=== PATIENT | male | born 1990 | race Caucasian/White ===

== ENCOUNTER 2016-09-02 12:38 | Emergency (ER) | payer MEDICAID ==
[2016-09-02] MEDS ORDERED: Ertapenem 1 GM Vial IM STA (13:24)
--- NOTE | 2016-09-02 13:35 | EDM.PDOC ---
ED HPI GENERAL MEDICAL PROBLEM - General Chief Complaint: Genitourinary Problem Stated Complaint: UNK Time Seen by Provider: 09/02/16 13:33 Source of Information: Reports: Patient - History of Present Illness INITIAL COMMENTS - FREE TEXT/NARRATIVE: HISTORY AND PHYSICAL: History of present illness: [] Patient presents with cellulitis of pubic area area is 2" x 3" with a central nidus likely ingrown hair this area is mildly reddened there is some induration forming there is no fluctuance at this time no exudate for culture, No fever nausea vomiting chills sweats Review of systems: As per history of present illness and below otherwise all systems reviewed and negative. Past medical history: As per history of present illness and as reviewed below otherwise noncontributory. Surgical history: As per history of present illness and as reviewed below otherwise noncontributory. Social history: No reported history of drug or alcohol abuse. Family history: As per history of present illness and as reviewed below otherwise noncontributory. Physical exam: HEENT: Atraumatic, normocephalic, pupils reactive, negative for conjunctival pallor or scleral icterus, mucous membranes moist, throat clear, neck supple, nontender, trachea midline. Lungs: Clear to auscultation, breath sounds equal bilaterally, chest nontender. Heart: S1S2, regular, negative for clicks, rubs, or JVD. Abdomen: Soft, nondistended, nontender. Negative for masses or hepatosplenomegaly. Negative for costovertebral tenderness. Pelvis: Stable nontender. Genitourinary: Deferred. Rectal: Deferred. Extremities: Atraumatic, negative for cords or calf pain. Neurovascular unremarkable. Neuro: Awake, alert, oriented. Cranial nerves II through XII unremarkable. Cerebellum unremarkable. Motor and sensory unremarkable throughout. Exam nonfocal. Skin as per history of present illness otherwise unremarkable Diagnostics: [] Therapeutics: [] Invanz 1 g IM Bactrim double strength by mouth twice a day #20 no refill Warm pack Patient informed this may turn into an abscess requiring drainage he is to return if symptoms persist or worsen despite treatment or if fever nausea vomiting chills sweats should they develop Impression: [] Cellulitis Definitive disposition and diagnosis as appropriate pending reevaluation and review of above. - Related Data Allergies Allergy/AdvReac Type Severity Reaction Status Date / Time No Known Allergies Allergy Verified 09/02/16 13:19 Home Meds: Home Meds . [No Known Home Meds] 05/09/16 [History] Past Medical History - Past Surgical History Musculoskeletal Surgical History: Reports: Other (See Below) Social & Family History - Family History Family Medical History: Noncontributory - Tobacco Use Smoking Status *Q: Current Every Day Smoker Years of Tobacco use: 10 Packs/Tins Daily: 0.5 Used Tobacco, but Quit: No Second Hand Smoke Exposure: Yes - Caffeine Use Caffeine Use: Reports: None - Alcohol Use Days Per Week of Alcohol Use: 0 - Recreational Drug Use Recreational Drug Use: No ED ROS GENERAL - Review of Systems Review Of Systems: ROS reveals no pertinent complaints other than HPI. ED EXAM, GENERAL - Physical Exam Exam: See Below Course - Orders/Labs/Meds Meds: Medications Discontinued Medications Generic Name Dose Route Start Last Admin Trade Name Freq PRN Reason Stop Dose Admin Ertapenem 1 gm 09/02/16 13:24 Invanz IM 09/02/16 13:25 NOW STA Departure - Departure Time of Disposition: 13:42 Disposition: Home, Self-Care 01 Condition: good Clinical Impression: Cellulitis - Discharge Information Forms: ED Department Discharge Additional Instructions: Return if symptoms persist or worsen Medications as prescribed Warm pack the running washcloths under hot water placed over the infected area for 10-15 minutes As discussed this may develop into abscess requiring further treatment Return to emergency room immediately if fever nausea vomiting chills sweats or increased of cellulitis is despite antibiotics Followup with primary care for recheck in one week [facility] [address] [place] [id number] The following information is given to patients seen in the emergency department who are being discharged to home. This information is to outline your options for follow-up care. We provide all patients seen in our emergency department with a follow-up referral. The need for follow-up, as well as the timing and circumstances, are variable depending upon the specifics of your emergency department visit. If you don't have a primary care physician on staff, we will provide you with a referral. We always advise you to contact your personal physician following an emergency department visit to inform them of the circumstance of the visit and for follow-up with them and/or the need for any referrals to a consulting specialist. The emergency department will also refer you to a specialist when appropriate. This referral assures that you have the opportunity for follow-up care with a specialist. All of these measure are taken in an effort to provide you with optimal care, which includes your follow-up. Under all circumstances we always encourage you to contact your private physician who remains a resource for coordinating your care. When calling for follow-up care, please make the office aware that this follow-up is from your recent emergency room visit. If for any reason you are refused follow-up, please contact the [facility] emergency department at and asked to speak to the emergency department charge nurse.
[2016-09-02 14:18] VITALS: BP 132/78
== END 2016-09-02 14:16 | disposition home or self-care (01) ==
LOC: MW.ED 12:38
DX: L03.319 Cellulitis of trunk, unspecified (principal); F17.210 Nicotine dependence, cigarettes, uncomplicated
CPT/HCPCS: 96372; 99283; J1335

== ENCOUNTER 2016-09-10 19:25 | Emergency (ER) | payer MEDICAID ==
[2016-09-10] MEDS ORDERED: methylPREDNISolone Sodium Succinate 125 MG/2 ML SDV IVPUSH ONE (19:47)
[2016-09-10] MEDS ORDERED: Sodium Chloride 0.9% 1,000 ML IV ONE (19:47)
[2016-09-10] MEDS ORDERED: ceFAZolin 2 GM in Premix Bag 1 BAG IV ONE (19:47)
--- NOTE | 2016-09-10 20:52 | EDM.PDOC ---
ED HPI GENERAL MEDICAL PROBLEM - General Chief Complaint: Skin Complaint Stated Complaint: PT HAS ALLERGIC REACTION TO MEDICINE Time Seen by Provider: 09/10/16 19:45 Source of Information: Reports: Patient History Limitations: Reports: No Limitations - History of Present Illness INITIAL COMMENTS - FREE TEXT/NARRATIVE: History of present illness: [26-year-old male presenting with diffuse erythematous rash status post new antibiotics. Patient had a slight abscess in the suprapubic region to 2 a folliculitis that you've all.] Review of systems: As per history of present illness and below otherwise all systems reviewed and negative. Past medical history: As per history of present illness and as reviewed below otherwise noncontributory. Surgical history: As per history of present illness and as reviewed below otherwise noncontributory. Social history: No reported history of drug or alcohol abuse. Family history: As per history of present illness and as reviewed below otherwise noncontributory. Physical exam: HEENT: Atraumatic, normocephalic, pupils reactive, negative for conjunctival pallor or scleral icterus, mucous membranes moist, throat clear, neck supple, nontender, trachea midline. Lungs: Clear to auscultation, breath sounds equal bilaterally, chest nontender. Heart: S1S2, regular, negative for clicks, rubs, or JVD. Abdomen: Soft, nondistended, nontender. Negative for masses or hepatosplenomegaly. Negative for costovertebral tenderness. Pelvis: Stable nontender. Genitourinary: Deferred. Rectal: Deferred. Extremities: Atraumatic, negative for cords or calf pain. Neurovascular unremarkable. Neuro: Awake, alert, oriented. Cranial nerves II through XII unremarkable. Cerebellum unremarkable. Motor and sensory unremarkable throughout. Exam nonfocal. Skin: Slightly healed draining abscess in the suprapubic region. Diffuse patchy erythematous rash primarily over trunk that also slightly spread over extremities that is prutitic Diagnostics: [] Therapeutics: [IV fluids, Solu-Medrol, Rocephin] Impression: [Allergic reaction, incomplete healing of previous abscess] Plan: [Antibiotics] Definitive disposition and diagnosis as appropriate pending reevaluation and review of above. Suprapubic Pain Score (Numeric/FACES): 7 - Related Data Allergies Allergy/AdvReac Type Severity Reaction Status Date / Time No Known Allergies Allergy Verified 09/10/16 19:38 Home Meds: Home Meds Cephalexin [Keflex] 500 mg PO QID #40 capsule 09/10/16 [Rx] Past Medical History HEENT History: Reports: None Cardiovascular History: Reports: None Respiratory History: Reports: None Gastrointestinal History: Reports: None Genitourinary History: Reports: None Musculoskeletal History: Reports: None Neurological History: Reports: None Psychiatric History: Reports: None Endocrine/Metabolic History: Reports: None Hematologic History: Reports: None Immunologic History: Reports: None Oncologic (Cancer) History: Reports: None Dermatologic History: Reports: None - Infectious Disease History Infectious Disease History: Reports: None - Past Surgical History Head Surgeries/Procedures: Reports: None HEENT Surgical History: Reports: Tonsillectomy Cardiovascular Surgical History: Reports: None Respiratory Surgical History: Reports: None GI Surgical History: Reports: None Male Surgical History: Reports: None Endocrine Surgical History: Reports: None Neurological Surgical History: Reports: None Oncologic Surgical History: Reports: None Dermatological Surgical History: Reports: None Social & Family History - Family History Family Medical History: Noncontributory - Tobacco Use Smoking Status *Q: Current Every Day Smoker Years of Tobacco use: 14 Packs/Tins Daily: 1 Used Tobacco, but Quit: No Second Hand Smoke Exposure: Yes - Caffeine Use Caffeine Use: Reports: Soda - Alcohol Use Days Per Week of Alcohol Use: 0 - Recreational Drug Use Recreational Drug Use: No ED ROS GENERAL - Review of Systems Review Of Systems: See Below (See history of present illness) ED EXAM, SKIN/RASH Exam: See Below (See history of present illness) Course - Vital Signs Last Recorded V/S: Last Vital Signs Temp 37.2 C 09/10/16 19:38 Pulse 110 H 09/10/16 19:38 Resp 17 09/10/16 19:38 BP 134/81 09/10/16 19:38 Pulse Ox 97 09/10/16 19:38 - Orders/Labs/Meds Meds: Medications Discontinued Medications Generic Name Dose Route Start Last Admin Trade Name Freq PRN Reason Stop Dose Admin Sodium Chloride 1,000 mls @ 999 mls/hr 09/10/16 19:47 09/10/16 20:02 Normal Saline IV 09/10/16 20:47 999 mls/hr STAT ONE Administration Cefazolin Sodium/Dextrose 2 gm 50 mls @ 100 mls/hr 09/10/16 19:47 09/10/16 20 :03 / Premix IV 09/10/16 20:16 100 mls/hr ONETIME ONE Administration Methylprednisolone Sodium Succinate 125 mg 09/10/16 19:47 09/10/16 20:03 Solu-Medrol IVPUSH 09/10/16 19:48 125 mg ONETIME ONE Administration Departure - Departure Time of Disposition: 20:51 Disposition: Home, Self-Care 01 Condition: good Clinical Impression: Allergic reaction caused by a drug, Abscess, Cellulitis - Discharge Information Forms: ED Department Discharge Additional Instructions: The following information is given to patients seen in the emergency department who are being discharged to home. This information is to outline your options for follow-up care. We provide all patients seen in our emergency department with a follow-up referral. The need for follow-up, as well as the timing and circumstances, are variable depending upon the specifics of your emergency department visit. If you don't have a primary care physician on staff, we will provide you with a referral. We always advise you to contact your personal physician following an emergency department visit to inform them of the circumstance of the visit and for follow-up with them and/or the need for any referrals to a consulting specialist. The emergency department will also refer you to a specialist when appropriate. This referral assures that you have the opportunity for follow-up care with a specialist. All of these measure are taken in an effort to provide you with optimal care, which includes your follow-up. Under all circumstances we always encourage you to contact your private physician who remains a resource for coordinating your care. When calling for follow-up care, please make the office aware that this follow-up is from your recent emergency room visit. If for any reason you are refused follow-up, please contact the [facility] Emergency Department at and asked to speak to the emergency department charge nurse. Take medication as directed You may take Benadryl [id number] as needed for further itching Discontinue previous antibiotic as discussed Followup with primary care provider one to 2 days Turned ED as needed as discussed
[2016-09-10 21:06] VITALS: BP 133/76
== END 2016-09-10 21:06 | disposition home or self-care (01) ==
LOC: MW.ED 19:25
DX: L03.818 Cellulitis of other sites (principal); L02.818 Cutaneous abscess of other sites; T88.6XXA Anaphylactic reaction due to adverse effect of correct drug or medicament properly administered, initial encounter; F17.210 Nicotine dependence, cigarettes, uncomplicated; Z98.890 Other specified postprocedural states
CPT/HCPCS: 96361; 96365; 96375; 99282; J0690; J2930; J7040; 99284

== ENCOUNTER 2016-12-15 10:28 | Emergency (ER) | payer MEDICAID ==
--- NOTE | 2016-12-15 11:09 | EDM.PDOC ---
<Kyree Paredes - Last Filed: 12/15/16 12:35> ED HPI GENERAL MEDICAL PROBLEM - General Chief Complaint: Upper Extremity Injury/Pain Stated Complaint: RT ARM WEAKNESS AND NUMBNESS Time Seen by Provider: 12/15/16 10:45 Source of Information: Reports: Patient History Limitations: Reports: No Limitations - History of Present Illness INITIAL COMMENTS - FREE TEXT/NARRATIVE: History of present illness: 26-year-old male comes in complaining of significant weakness and decreased range of motion to right arm. Patient does indicate that he has had 2 recent traumas to his right shoulder and arm region but cannot indicate specifically what happened. Patient indicates approximately 5 days ago he was playing football when he sustained a blow to the shoulder and then 2 days ago while getting up to go the bathroom in the middle the night he tripped and fell and cannot describe what position arm was or how he landed. Review of systems: As per history of present illness and below otherwise all systems reviewed and negative. Past medical history: As per history of present illness and as reviewed below otherwise noncontributory. Surgical history: As per history of present illness and as reviewed below otherwise noncontributory. Social history: No reported history of drug or alcohol abuse. Family history: As per history of present illness and as reviewed below otherwise noncontributory. Physical exam: HEENT: Atraumatic, normocephalic, pupils reactive, negative for conjunctival pallor or scleral icterus, mucous membranes moist, throat clear, neck supple, nontender, trachea midline. Lungs: Clear to auscultation, breath sounds equal bilaterally, chest nontender. Heart: S1S2, regular, negative for clicks, rubs, or JVD. Abdomen: Soft, nondistended, nontender. Negative for masses or hepatosplenomegaly. Negative for costovertebral tenderness. Pelvis: Stable nontender. Genitourinary: Deferred. Rectal: Deferred. Extremities: Atraumatic, negative for cords or calf pain. Neurovascular unremarkable. Neuro: Awake, alert, oriented. Cranial nerves II through XII unremarkable. Cerebellum unremarkable. Of note patient has generalized weakness to the right with active range of motion indicating he finds it difficult to raise his arm higher than a straightforward type position but bicep, tricep, and air pollution engineer noted to be strong 5/ 5, as well as ability to perform full passive range of motion. There is a significant amount of crepitus in the right shoulder consistent with historical blunt trauma. Diagnostics: [Shoulder x-ray] Therapeutics: [] Impression: [Right-sided arm weakness consistent with shoulder injury] Plan: [Sling, and follow-up with Ortho] Definitive disposition and diagnosis as appropriate pending reevaluation and review of above. - Related Data Allergies Allergy/AdvReac Type Severity Reaction Status Date / Time Sulfa (Sulfonamide Allergy Rash Verified 12/15/16 10:39 Antibiotics) Home Meds: Home Meds . [No Known Home Meds] 12/15/16 [History] Past Medical History - Past Health History Medical/Surgical History: Denies Medical/Surgical History HEENT History: Reports: None Cardiovascular History: Reports: None Respiratory History: Reports: None Gastrointestinal History: Reports: None Genitourinary History: Reports: None Musculoskeletal History: Reports: None Neurological History: Reports: None Psychiatric History: Reports: None Endocrine/Metabolic History: Reports: None Hematologic History: Reports: None Immunologic History: Reports: None Oncologic (Cancer) History: Reports: None Dermatologic History: Reports: None - Infectious Disease History Infectious Disease History: Reports: None - Past Surgical History Head Surgeries/Procedures: Reports: None HEENT Surgical History: Reports: Tonsillectomy Cardiovascular Surgical History: Reports: None Respiratory Surgical History: Reports: None GI Surgical History: Reports: None Male Surgical History: Reports: None Endocrine Surgical History: Reports: None Neurological Surgical History: Reports: None Oncologic Surgical History: Reports: None Dermatological Surgical History: Reports: None Social & Family History - Family History Family Medical History: Noncontributory - Tobacco Use Smoking Status *Q: Current Every Day Smoker Years of Tobacco use: 13 Packs/Tins Daily: 1 Used Tobacco, but Quit: No Second Hand Smoke Exposure: Yes - Caffeine Use Caffeine Use: Reports: Soda - Alcohol Use Days Per Week of Alcohol Use: 0 - Recreational Drug Use Recreational Drug Use: No Review of Systems - Review of Systems Review Of Systems: See Below (See history of present illness) ED EXAM, GENERAL - Physical Exam Exam: See Below (See history of present illness) Course - Vital Signs Last Recorded V/S: Last Vital Signs Temp 36.4 C 12/15/16 11:49 Pulse 84 12/15/16 11:49 Resp 16 12/15/16 11:49 BP 126/76 12/15/16 11:49 Pulse Ox 97 12/15/16 11:49 - Orders/Labs/Meds Orders: Active Orders 24 hr Category Date Time Status DME for Discharge [COMM] Stat Oth 12/15/16 12:39 Ordered Departure - Departure Time of Disposition: 12:37 Disposition: Home, Self-Care 01 Condition: Good Clinical Impression: Right shoulder injury - Discharge Information Instructions: How to Use a Sling, [id number], Shoulder Pain, [id number] Referrals: PCP,None [Primary Care Provider] - Forms: ED Department Discharge Additional Instructions: The following information is given to patients seen in the emergency department who are being discharged to home. This information is to outline your options for follow-up care. We provide all patients seen in our emergency department with a follow-up referral. The need for follow-up, as well as the timing and circumstances, are variable depending upon the specifics of your emergency department visit. If you don't have a primary care physician on staff, we will provide you with a referral. We always advise you to contact your personal physician following an emergency department visit to inform them of the circumstance of the visit and for follow-up with them and/or the need for any referrals to a consulting specialist. The emergency department will also refer you to a specialist when appropriate. This referral assures that you have the opportunity for follow-up care with a specialist. All of these measure are taken in an effort to provide you with optimal care, which includes your follow-up. Under all circumstances we always encourage you to contact your private physician who remains a resource for coordinating your care. When calling for follow-up care, please make the office aware that this follow-up is from your recent emergency room visit. If for any reason you are refused follow-up, please contact the [facility] Emergency Department at and asked to speak to the emergency department charge nurse. He may take ibuprofen 800 mg every 8 hours as needed for pain Usual sling as instructed Follow-up with orthopedics as instructed Return to ED as needed as instructed [facility] [address], [address] [place] [address] <Araceli Thompson - Last Filed: 12/15/16 12:58> ED HPI GENERAL MEDICAL PROBLEM - History of Present Illness INITIAL COMMENTS - FREE TEXT/NARRATIVE: Please note that Dr. Zarate our orthopedic surgeon was contacted about this patient did not request any outpatient testing to be performed prior to making a clinic appointment. She recommended a sling and follow-up.
--- NOTE | 2016-12-15 12:23 | CR ---
EXAMINATION: Right shoulder HISTORY: Evaluate for dislocation COMPARISON: None TECHNIQUE: 3 views FINDINGS: There is no acute osseous abnormality, dislocation, or fracture. Bone mineralization and linwood int spaces are preserved. IMPRESSION: No acute osseous abnormality identified.
[2016-12-15 13:08] VITALS: BP 124/82
== END 2016-12-15 12:50 | disposition home or self-care (01) ==
LOC: MW.ED 10:28
DX: S49.91XA Unspecified injury of right shoulder and upper arm, initial encounter (principal); F17.210 Nicotine dependence, cigarettes, uncomplicated; Z98.890 Other specified postprocedural states; Z88.2 Allergy status to sulfonamides; X58.XXXA Exposure to other specified factors, initial encounter; Y93.61 Activity, american tackle football
CPT/HCPCS: 73030; 99283; A4566; 99282

== ENCOUNTER 2017-07-12 13:50 | Emergency (ER) | payer MEDICAID ==
[2017-07-12 14:33] VITALS: BP 132/78
--- NOTE | 2017-07-12 14:59 | EDM.PDOC ---
ED HPI GENERAL MEDICAL PROBLEM - General Chief Complaint: General Stated Complaint: PT WOULD LIKE TO BE SEEN Time Seen by Provider: 07/12/17 14:59 Source of Information: Reports: Patient History Limitations: Reports: No Limitations - History of Present Illness INITIAL COMMENTS - FREE TEXT/NARRATIVE: HISTORY AND PHYSICAL: History of present illness: [Patient comes to the emergency room requesting a referral for outpatient alcohol treatment. States that he completed alcohol detox at [facility] yesterday, and is wanting to continue outpatient treatment. He has no complaints or concerns. He drank alcohol since the age of 10, and prior to attending detox was drinking 12-30 beers per day.] Review of systems: As per history of present illness and below otherwise all systems reviewed and negative. Past medical history: As per history of present illness and as reviewed below otherwise noncontributory. Surgical history: As per history of present illness and as reviewed below otherwise noncontributory. Social history: No reported history of drug or alcohol abuse. Family history: As per history of present illness and as reviewed below otherwise noncontributory. Physical exam: HEENT: Atraumatic, normocephalic. Extremities: Atraumatic. Neurovascular unremarkable. Neuro: Awake, alert, oriented. Motor and sensory unremarkable throughout. Exam nonfocal. I: Affect is normal. Appears mildly anxious, but not tremulous. Impression: [alcoholism] Plan: [Patient is given referral to [facility], and instructed to walk in tomorrow during walk-in hours. He is in agreement w/ plan. All questions are answered and concerns are addressed. ] Definitive disposition and diagnosis as appropriate pending reevaluation and review of above. - Related Data Allergies Allergy/AdvReac Type Severity Reaction Status Date / Time Sulfa (Sulfonamide Allergy Rash Verified 07/12/17 14:33 Antibiotics) Home Meds: Home Meds . [No Known Home Meds] 12/15/16 [History] Past Medical History - Past Health History Medical/Surgical History: Denies Medical/Surgical History HEENT History: Reports: None Cardiovascular History: Reports: None Respiratory History: Reports: None Gastrointestinal History: Reports: None Genitourinary History: Reports: None Musculoskeletal History: Reports: None Neurological History: Reports: None Psychiatric History: Reports: Anxiety, Depression Endocrine/Metabolic History: Reports: None Hematologic History: Reports: None Immunologic History: Reports: None Oncologic (Cancer) History: Reports: None Dermatologic History: Reports: None - Infectious Disease History Infectious Disease History: Reports: Chicken Pox - Past Surgical History Head Surgeries/Procedures: Reports: None HEENT Surgical History: Reports: Tonsillectomy Cardiovascular Surgical History: Reports: None Respiratory Surgical History: Reports: None GI Surgical History: Reports: None Male Surgical History: Reports: None Endocrine Surgical History: Reports: None Neurological Surgical History: Reports: None Musculoskeletal Surgical History: Reports: Arthroscopic Knee Oncologic Surgical History: Reports: None Dermatological Surgical History: Reports: None Social & Family History - Family History Family Medical History: Noncontributory - Tobacco Use Smoking Status *Q: Current Every Day Smoker Years of Tobacco use: 14 Packs/Tins Daily: 2 Used Tobacco, but Quit: No Second Hand Smoke Exposure: Yes - Caffeine Use Caffeine Use: Reports: Coffee, Soda, Tea - Alcohol Use Days Per Week of Alcohol Use: 7 Number of Drinks Per Day: 18 Total Drinks Per Week: 126 - Recreational Drug Use Recreational Drug Use: Yes Drug Use in Last 12 Months: Yes Recreational Drug Type: Reports: Marijuana/Hashish Recreational Drug Use Frequency: Weekly ED ROS GENERAL - Review of Systems Review Of Systems: ROS reveals no pertinent complaints other than HPI. ED EXAM, GENERAL - Physical Exam Exam: See Below Course - Vital Signs Last Recorded V/S: Last Vital Signs Temp 99.0 F 07/12/17 14:29 Pulse 109 H 07/12/17 14:29 Resp 18 07/12/17 14:29 BP 132/78 07/12/17 14:29 Pulse Ox 97 07/12/17 14:29 Departure - Departure Time of Disposition: 15:30 Disposition: Home, Self-Care 01 Condition: Good Clinical Impression: Alcoholism - Discharge Information Instructions: Alcohol Use Disorder Referrals: PCP,None [Primary Care Provider] - Forms: ED Department Discharge Additional Instructions: The following information is given to patients seen in the emergency department who are being discharged to home. This information is to outline your options for follow-up care. We provide all patients seen in our emergency department with a follow-up referral. The need for follow-up, as well as the timing and circumstances, are variable depending upon the specifics of your emergency department visit. If you don't have a primary care physician on staff, we will provide you with a referral. We always advise you to contact your personal physician following an emergency department visit to inform them of the circumstance of the visit and for follow-up with them and/or the need for any referrals to a consulting specialist. The emergency department will also refer you to a specialist when appropriate. This referral assures that you have the opportunity for follow-up care with a specialist. All of these measure are taken in an effort to provide you with optimal care, which includes your follow-up. Under all circumstances we always encourage you to contact your private physician who remains a resource for coordinating your care. When calling for follow-up care, please make the office aware that this follow-up is from your recent emergency room visit. If for any reason you are refused follow-up, please contact the [facility] emergency department at and asked to speak to the emergency department charge nurse. [facility] [address] [place] [address] Toll Free: Crisis Line: Toll Free Crisis Line: TTY: Follow up with the above clinic tomorrow morning as discussed.
== END 2017-07-12 15:44 | disposition home or self-care (01) ==
LOC: MW.ED 13:50
DX: F10.20 Alcohol dependence, uncomplicated (principal); F17.210 Nicotine dependence, cigarettes, uncomplicated; Z88.2 Allergy status to sulfonamides
CPT/HCPCS: 99282

== ENCOUNTER 2017-07-22 14:15 | Emergency (ER) | payer SELFPAY ==
--- NOTE | 2017-07-22 14:21 | EDM.PDOCBH ---
ED HPI GENERAL MEDICAL PROBLEM - General Chief Complaint: Behavioral/Psych Stated Complaint: PT IS HER FOR DETOX Time Seen by Provider: 07/22/17 14:20 Source of Information: Reports: Patient History Limitations: Reports: No Limitations - History of Present Illness INITIAL COMMENTS - FREE TEXT/NARRATIVE: HISTORY AND PHYSICAL: History of present illness: Patient is a 26-year-old male who presents to the emergency room with complaints of anxiety, body aches and discomfort, visual disturbances, agitation , insomnia since staining from alcohol. Patient states he has used alcohol since he was 10 years of age. Patient was discharged from [facility] in [facility] alcohol treatment center on 07/11/2017. He states since his discharge she has been drinking alcohol daily, smoking marijuana daily, using a friend's Xanax to help alleviate his discomfort and taking several [id number] sleep aids to try to help him to fall asleep. Patient states that he was prescribed Zyprexa upon his discharge from [facility]; felt he was gaining weight after 3 days of use and "threw them away". He has been seeing a counselor at [facility]. Today he went to a scheduled appointment at [facility] and shared his concerns and complaints with the counselor there. He states he would like to seek help as an outpatient alcohol treatment. Reports his last alcoholic drink was on 07/18/2017. That time he has been having visual disturbances such as seeing curtains move feeling paranoid. He denies any thoughts of self-harm or harming others. He signed the Xanax and marijuana he denies any drug use. There is a counselor from [facility] that accompanied him to our facility as he drove himself here, she wanted to make sure he made it here safely for evaluation. He states there is no committal on him. She reports he has NOT expressed any thoughts of self harm or harming others. Review of systems: As per history of present illness and below otherwise all systems reviewed and negative. Past medical history: As per history of present illness and as reviewed below otherwise noncontributory. Surgical history: As per history of present illness and as reviewed below otherwise noncontributory. Social history: No reported history of drug or alcohol abuse. Family history: As per history of present illness and as reviewed below otherwise noncontributory. Physical exam: General: HEENT: Atraumatic, normocephalic, pupils equal and reactive bilaterally, negative for conjunctival pallor or scleral icterus, mucous membranes moist, throat clear, neck supple, nontender, trachea midline. No drooling or trismus noted. No meningeal signs Lungs: Clear to auscultation, breath sounds equal bilaterally, chest nontender. Heart: S1S2, regular rate and rhythm without overt murmur Abdomen: Soft, nondistended, nontender. Negative for masses or hepatosplenomegaly. Negative for costovertebral tenderness. Pelvis: Stable nontender. Genitourinary: Deferred. Rectal: Deferred. Skin: Intact, warm, dry. No lesions or rashes noted. Extremities: Atraumatic, negative for cords or calf pain. Neurovascular unremarkable. Neuro: Awake, alert, oriented. Cranial nerves II through XII unremarkable. Cerebellum unremarkable. Motor and sensory unremarkable throughout. Exam nonfocal. Notes: While talking with the patient I did ask him what his expectations of today's visit through the emergency room was. He states he was in hopes that we would refill his Zyprexa and "make him feel better" to return home. That we do not routinely prescribed psychiatric medications without involvement of her primary care provider. I did ask him if he would like to be transferred or private vehicle transfer to [facility] in [place], which he declines. Patient appears anxious; but he is alert and orientated. He is acting appropriately and appears in no acute distress. At this time he is agreeable to routine lab work, IV fluid and Ativan. After nursing staff had placed an IV and started the IV fluids the patient declines the Ativan. I did go into the patient's room to discuss the ordered medications and ordered labs. He states he would like to go home as he lives in [place] and would not be able to drive himself after taking the Ativan. Suggest that he stay for the IV fluids which he declined. He would like to leave AGAINST MEDICAL ADVICE. We did possible comes/risks of him leaving which he accepts those risks. Encouraged him to follow-up with [facility] and return if he would like further help with his alcohol addiction. He remains alert and oriented and is in good judgment. Diagnostics: CBC, CMP, acetaminophen, salicylate, UA, drug screen, TSH Therapeutics: Banana Bag, Ativan Impression: Alcohol Abuse Plan: AMA Definitive disposition and diagnosis as appropriate pending reevaluation and review of above. - Related Data Allergies Allergy/AdvReac Type Severity Reaction Status Date / Time Sulfa (Sulfonamide Allergy Rash Verified 07/22/17 14:24 Antibiotics) Home Meds: Home Meds . [No Known Home Meds] 12/15/16 [History] Past Medical History - Past Health History Medical/Surgical History: Denies Medical/Surgical History HEENT History: Reports: None Cardiovascular History: Reports: None Respiratory History: Reports: None Gastrointestinal History: Reports: None Genitourinary History: Reports: None Musculoskeletal History: Reports: None Neurological History: Reports: None Psychiatric History: Reports: Anxiety, Depression Endocrine/Metabolic History: Reports: None Hematologic History: Reports: None Immunologic History: Reports: None Oncologic (Cancer) History: Reports: None Dermatologic History: Reports: None - Infectious Disease History Infectious Disease History: Reports: Chicken Pox - Past Surgical History Head Surgeries/Procedures: Reports: None HEENT Surgical History: Reports: Tonsillectomy Cardiovascular Surgical History: Reports: None Respiratory Surgical History: Reports: None GI Surgical History: Reports: None Male Surgical History: Reports: None Endocrine Surgical History: Reports: None Neurological Surgical History: Reports: None Musculoskeletal Surgical History: Reports: Arthroscopic Knee Oncologic Surgical History: Reports: None Dermatological Surgical History: Reports: None Social & Family History - Family History Family Medical History: Noncontributory - Tobacco Use Smoking Status *Q: Current Every Day Smoker Years of Tobacco use: 14 Packs/Tins Daily: 2 Used Tobacco, but Quit: No Second Hand Smoke Exposure: Yes - Caffeine Use Caffeine Use: Reports: Coffee, Soda, Tea - Alcohol Use Days Per Week of Alcohol Use: 7 Number of Drinks Per Day: 18 Total Drinks Per Week: 126 - Recreational Drug Use Recreational Drug Use: Yes Drug Use in Last 12 Months: Yes Recreational Drug Type: Reports: Marijuana/Hashish Recreational Drug Use Frequency: Weekly ED ROS GENERAL - Review of Systems Review Of Systems: ROS reveals no pertinent complaints other than HPI. ED EXAM, BEHAVIORAL HEALTH - Physical Exam Exam: See Below (See dictation) COURSE, BEHAVIORAL HEALTH COMP - Course Vital Signs: Last Vital Signs Temp 97.8 F 07/22/17 14:25 Pulse 83 07/22/17 14:25 Resp 16 07/22/17 14:25 BP 142/74 H 07/22/17 14:25 Pulse Ox 97 07/22/17 14:25 Orders, Labs, Meds: Active Orders 24 hr Category Date Time Status ACETAMINOPHEN [CHEM] Stat Lab 07/22/17 14:53 Received COMPREHENSIVE METABOLIC PN,CMP [CHEM] Stat Lab 07/22/17 14:53 Received SALICYLATE [CHEM] Stat Lab 07/22/17 14:53 Received TSH [CHEM] Stat Lab 07/22/17 14:53 Received Laboratory Tests 07/22/17 Range/Units 14:53 WBC 11.99 H (4.0-11.0) K/uL RBC 4.91 (4.50-5.90) M/uL Hgb 16.7 (13.0-17.0) g/dL Hct 48.6 (38.0-50.0) % MCV 99.0 H (80.0-98.0) fL MCH 34.0 H (27.0-32.0) pg MCHC 34.4 (31.0-37.0) g/dL RDW Std Deviation 46.6 (28.0-62.0) fl RDW Coeff of Kulwinder 13 (11.0-15.0) % Plt Count 200 (150-400) K/uL MPV 10.40 (7.40-12.00) fL Neut % (Auto) 70.1 (48.0-80.0) % Lymph % (Auto) 20.0 (16.0-40.0) % [place] % (Auto) 5.4 (0.0-15.0) % Eos % (Auto) 4.2 (0.0-7.0) % Baso % (Auto) 0.3 (0.0-1.5) % Neut # (Auto) 8.4 H (1.4-5.7) K/uL Lymph # (Auto) 2.4 (0.6-2.4) K/uL [place] # (Auto) 0.7 (0.0-0.8) K/uL Eos # (Auto) 0.5 (0.0-0.7) K/uL Baso # (Auto) 0.0 (0.0-0.1) K/uL Nucleated RBC % 0.0 /100WBC Nucleated RBCs # 0 K/uL Medications Discontinued Medications Generic Name Dose Route Start Last Admin Trade Name Freq PRN Reason Stop Dose Admin Multivitamins/Minerals 10 ml/ 1,011.2 mls @ 500 mls/hr 07/22/17 14:44 Thiamine HCl 100 mg/ Folic IV 07/22/17 16:45 Acid 1 mg/ Sodium Chloride ONETIME ONE Lorazepam 1 mg 07/22/17 14:44 Ativan IVPUSH 07/22/17 14:45 ONETIME ONE Departure - Departure Time of Disposition: 15:50 Disposition: Eloped 07 Clinical Impression: Alcohol abuse - Discharge Information Referrals: PCP,None [Primary Care Provider] - Forms: ED Department Discharge - My Orders Last 24 Hours: My Active Orders 07/22/17 14:53 ACETAMINOPHEN [CHEM] Stat COMPREHENSIVE METABOLIC PN,CMP [CHEM] Stat SALICYLATE [CHEM] Stat TSH [CHEM] Stat - Assessment/Plan Last 24 Hours: My Active Orders 07/22/17 14:53 ACETAMINOPHEN [CHEM] Stat COMPREHENSIVE METABOLIC PN,CMP [CHEM] Stat SALICYLATE [CHEM] Stat TSH [CHEM] Stat
[2017-07-22 14:30] VITALS: BP 142/74
[2017-07-22] MEDS ORDERED: MVI, Adult with Vitamin K 10 ML, Thiamine 100 MG, Folic Acid 1 MG in Sodium Chloride 0.... IV ONE ×4 (14:44)
[2017-07-22] MEDS ORDERED: LORazepam 2 MG/ML SDV IVPUSH ONE (14:44)
[2017-07-22 15:49] LABS: CHLORIDE,CL 103 mmol/L (98-107); SODIUM,NA 141 mmol/L (136-148)
== END 2017-07-22 15:31 | disposition left against medical advice (07) ==
LOC: MW.ED 14:15
DX: F10.10 Alcohol abuse, uncomplicated (principal); F12.10 Cannabis abuse, uncomplicated; F17.210 Nicotine dependence, cigarettes, uncomplicated; Z88.2 Allergy status to sulfonamides
CPT/HCPCS: 36415; 80053; 84443; 85025; 96374; 99284; G0480; J3411; J7040; J2060